=== PATIENT | male | born 1970 | race Caucasian/White ===

== ENCOUNTER → 2016-09-29 | Outpatient (CLI) | payer BC ==
[2016-09-29 16:04] LABS: BLOOD UREA NITROGEN 28 mg/dl (7-18); GLUCOSE 177 mg/dl (70-99)
[2016-09-29 16:05] LABS: BUN/CREATININE RATIO 14.1 (10-20); CALCIUM 10.1 mg/dl (8.5-10.1); CARBON DIOXIDE 23 mmol/L (21-32); CHLORIDE 99 mmol/L (98-107); POTASSIUM 3.6 mmol/L (3.5-5.1); SODIUM 138 mmol/L (136-145)
== END | disposition home or self-care (01) ==
LOC: C.LABSPEC 11:15
PROVIDERS: ATTEND Urology
DX: N40.1 Benign prostatic hyperplasia with lower urinary tract symptoms (principal); N28.89 Other specified disorders of kidney and ureter; N20.0 Calculus of kidney